=== PATIENT | male | born 1980 | race Caucasian/White ===

== ENCOUNTER → 2021-10-21 | Day surgery (SDC) | payer OTHER ==
[~2021-10-21] VITALS: Ht 195.6 cm; Wt 129.3 kg
[~2021-10-21] MED LIST: DEXILANT60 MG PO; LEVAQUIN500 MG PO; LEXAPRO 10MG TA10 MG PO; MEGA MULTI FOR1 EACH PO; NAPROSYN500 MG PO; PRINIVIL20 MG PO
== END | disposition home or self-care (01) ==
LOC: FAS 07:39
DX: K64.0 First degree hemorrhoids (principal); K62.5 Hemorrhage of anus and rectum; K62.89 Other specified diseases of anus and rectum; I10 Essential (primary) hypertension; G47.30 Sleep apnea, unspecified; K21.9 Gastro-esophageal reflux disease without esophagitis; E78.5 Hyperlipidemia, unspecified; Z79.899 Other long term (current) drug therapy; Z99.89 Dependence on other enabling machines and devices; Z88.2 Allergy status to sulfonamides; Z87.891 Personal history of nicotine dependence; Z72.89 Other problems related to lifestyle; Z80.0 Family history of malignant neoplasm of digestive organs
CPT/HCPCS: J2250; J7120